=== PATIENT | female | born 2005 | race Caucasian/White ===

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

== ENCOUNTER 2023-01-12 14:07 | Emergency (ER) | payer OTHER ==
--- OUTSIDE RECORDS SUMMARY | 2023-01-12 14:10 | XMS REPORT | Continuity of Care Document ---
:2005 Author Organization [facility] t Address [address] [place] [address] Care Team Providers Name Role Phone [email or web address] Attending Clinician Unavailable Ruthie Snow Attending Clinician [phone] SAEID GODDARD Attending Clinician Unavailable Lab, Adc Fam Pob I Attending Clinician Unavailable Georgia Frey Attending Clinician GEORGIA CONWAY Attending Clinician Unavailable Elena Engle Attending Clinician ELENA JIMENEZ Attending Clinician Unavailable ZACK DASILVA Attending Clinician Unavailable Zack Dasilva MD Attending Clinician Gisel Mendez RN Attending Clinician Unavailable [email or web address] Admitting Clinician Unavailable Payers Payer Name Policy Type Policy Number Effective Date Expiration Date Alycia segura [facility] [id number] [facility] [id number] 2019 [facility] 00:00:00 (MEDICAID HMO) [facility] [id number] 2020 00:00:00 Problems Condition Condition Condition Status Onset Resolution Last Treating Co mments Source Name Details Category Date Date Treatment Clinician Date No known No known Disease Unive rs active active ity of problems problems [facility] Allergies, Adverse Reactions, Alerts Allergy Allergy Status Severity Reaction(s) Onset Inactive Treating Comm ents Source Name Type Date Date Clinician NO KNOWN Drug Active Univers ALLERGIE Class ity of S [facility] Social History Social Habit Start Date Stop Date Quantity Comments Source Exposure to SARS-CoV-2 [facility] [place] [facility] Sex Assigned At Uni versity [facility] Smoking Status Start Date Stop Date Source Never Smoker [facility] Unknown if ever smoked Universit y of [facility] Medications Ordered Filled Start Stop Current Ordering Indication Dosage Frequency Signature Comments Components Source Medication Medication Date Date Medication? Clinician (SIG) Name Name omeprazole 2020-0 Yes [id number] 40mg Take 1 U nivers 40 mg 8-14 capsule by ity of capsule 00:00: mouth [place] 00 daily. Medical Branch fluticasone 2020-0 Yes [id number] 2{spray Use 2 Univers propionate 8-14 } Sprays in ity of 50 00:00: each [place] mcg/actuati 00 nostril Medic al on nasal daily. Branch spray omeprazole 2020-0 Yes [id number] 40mg Take 1 U nivers 40 mg 8-14 capsule by ity of capsule 00:00: mouth [place] 00 daily. Medical Branch fluticasone 2020-0 Yes [id number] 2{spray Use 2 Univers propionate 8-14 } Sprays in ity of 50 00:00: each [place] mcg/actuati 00 nostril Medic al on nasal daily. Branch spray omeprazole 2020-0 Yes [id number] 40mg Take 1 U nivers 40 mg 8-14 capsule by ity of capsule 00:00: mouth [place] 00 daily. Medical Branch fluticasone 2020-0 Yes [id number] 2{spray Use 2 Univers propionate 8-14 } Sprays in ity of 50 00:00: each [place] mcg/actuati 00 nostril Medic al on nasal daily. Branch spray omeprazole 2020-0 Yes [id number] 40mg Take 1 U nivers 40 mg 8-14 capsule by ity of capsule 00:00: mouth [place] 00 daily. Medical Branch fluticasone 2020-0 Yes [id number] 2{spray Use 2 Univers propionate 8-14 } Sprays in ity of 50 00:00: each [place] mcg/actuati 00 nostril Medic al on nasal daily. Branch spray omeprazole 2020-0 Yes [id number] 40mg Take 1 U nivers 40 mg 8-14 capsule by ity of capsule 00:00: mouth [place] 00 daily. Medical Branch fluticasone 2020-0 Yes [id number] 2{spray Use 2 Univers propionate 8-14 } Sprays in ity of 50 00:00: each [place] mcg/actuati 00 nostril Medic al on nasal daily. Branch spray omeprazole 2020-0 Yes [id number] 40mg Take 1 U nivers 40 mg 8-14 capsule by ity of capsule 00:00: mouth [place] 00 daily. Medical Branch fluticasone 2020-0 Yes [id number] 2{spray Use 2 Univers propionate 8-14 } Sprays in ity of 50 00:00: each [place] mcg/actuati 00 nostril Medic al on nasal daily. Branch spray omeprazole 2020-0 Yes [id number] 40mg Take 1 U nivers 40 mg 8-14 capsule by ity of capsule 00:00: mouth [place] 00 daily. Medical Branch fluticasone 2020-0 Yes [id number] 2{spray Use 2 Univers propionate 8-14 } Sprays in ity of 50 00:00: each [place] mcg/actuati 00 nostril Medic al on nasal daily. Branch spray omeprazole 2020-0 Yes [id number] 40mg Take 1 U nivers 40 mg 8-14 capsule by ity of capsule 00:00: mouth [place] 00 daily. Medical Branch fluticasone 2020-0 Yes [id number] 2{spray Use 2 Univers propionate 8-14 } Sprays in ity of 50 00:00: each [place] mcg/actuati 00 nostril Medic al on nasal daily. Branch spray omeprazole 2020-0 Yes [id number] 40mg Take 1 U nivers 40 mg 8-14 capsule by ity of capsule 00:00: mouth [place] 00 daily. Medical Branch fluticasone 2020-0 Yes [id number] 2{spray Use 2 Univers propionate 8-14 } Sprays in ity of 50 00:00: each [place] mcg/actuati 00 nostril Medic al on nasal daily. Branch spray omeprazole 2020-0 Yes [id number] 40mg Take 1 U nivers 40 mg 8-14 capsule by ity of capsule 00:00: mouth [place] 00 daily. Medical Branch fluticasone 2020-0 Yes [id number] 2{spray Use 2 Univers propionate 8-14 } Sprays in ity of 50 00:00: each [place] mcg/actuati 00 nostril Medic al on nasal daily. Branch spray fluticasone 2020-0 2020- No [id number] 1{spray Use 1 Univers propionate 8-14 08-14 } [place] in ity of 50 00:00: 00:00 each [place] mcg/actuati 00 :00 nostril Medic al on nasal daily. Branch spray famotidine 2019-0 2020- No [id number] 40mg Take 1 Univers 40 mg 8-14 08-14 tablet by ity of tablet 00:00: 00:00 mouth at [place] 00 :00 bedtime. Medical Branch fluticasone 2020-0 2020- No [id number] 1{spray Use 1 Univers propionate 8-14 08-14 } [place] in ity of 50 00:00: 00:00 each [place] mcg/actuati 00 :00 nostril Medic al on nasal daily. Branch spray famotidine 2020-0 2020- No [id number] 40mg Take 1 Univers 40 mg 8-14 08-14 tablet by ity of tablet 00:00: 00:00 mouth at [place] 00 :00 bedtime. Medical Branch fluticasone 2020-0 2020- No [id number] 1{spray Use 1 Univers propionate 8-14 08-14 } [place] in ity of 50 00:00: 00:00 each [place] mcg/actuati 00 :00 nostril Medic al on nasal daily. Branch spray famotidine 2020-0 2020- No [id number] 40mg Take 1 Univers 40 mg 8-14 08-14 tablet by ity of tablet 00:00: 00:00 mouth at [place] 00 :00 bedtime. Medical Branch levonorgest 2020-0 Yes [facility] rel-ethinyl 8-03 ity of estradiol 00:00: [place] 0.1-20 00 Medical mg-mcg per Branch tablet levonorgest 2020-0 Yes [facility] rel-ethinyl 8-03 ity of estradiol 00:00: [place] 0.1-20 00 Medical mg-mcg per Branch tablet levonorgest 2020-0 Yes [facility] rel-ethinyl 8-03 ity of estradiol 00:00: [place] 0.1-20 00 Medical mg-mcg per Branch tablet levonorgest 2020-0 Yes Univer s rel-ethinyl 8-03 ity of estradiol 00:00: [place] 0.1-20 00 Medical mg-mcg per Branch tablet levonorgest 2020-0 Yes Univer s rel-ethinyl 8-03 ity of estradiol 00:00: [place] 0.1-20 00 Medical mg-mcg per Branch tablet levonorgest 2020-0 Yes Univer s rel-ethinyl 8-03 ity of estradiol 00:00: [place] 0.1-20 00 Medical mg-mcg per Branch tablet levonorgest 2020-0 Yes Univer s rel-ethinyl 8-03 ity of estradiol 00:00: [place] 0.1-20 00 Medical mg-mcg per Branch tablet levonorgest 2020-0 Yes [facility] rel-ethinyl 02-12 ity of estradiol 00:00: [place] 0.1-20 00 Medical mg-mcg per Branch tablet levonorgest 2020-0 Yes [facility] rel-ethinyl 02-12 ity of estradiol 00:00: [place] 0.1-20 00 Medical mg-mcg per Branch tablet levonorgest 2020-0 Yes [facility] rel-ethinyl 02-12 ity of estradiol 00:00: [place] 0.1-20 00 Medical mg-mcg per Branch tablet Aviane 0.1 Aviane 0.1 No Aviane 0.1 [facility] mg-20 mcg mg-20 mcg mg-20 mcg Medical tablet TAKE tablet TAKE tablet 1 TABLET BY 1 TABLET BY TAKE 1 MOUTH ONCE MOUTH ONCE TABLET BY DAILY DAILY MOUTH ONCE DIRECTED DIRECTED DAILY DIRECTED mometasone mometasone No mometasone [facility] 0.1 % 0.1 % 0.1 % Medical topical topical topical ointment ointment ointment Preparation Preparation No Preparatio [facility] H Maximum H Maximum n H Medic al Strength Strength Maximum 0.25 %-1 % 0.25 %-1 % Strength rectal rectal 0.25 %-1 % cream Apply cream Apply rectal Topically Topically cream to rectal to rectal Apply area up to area up to Topically 4 times per 4 times per to rectal day day area up to 4 times per day Aviane 0.1 Aviane 0.1 No Aviane 0.1 [facility] mg-20 mcg mg-20 mcg mg-20 mcg Medical tablet TAKE tablet TAKE tablet 1 TABLET BY 1 TABLET BY TAKE 1 MOUTH ONCE MOUTH ONCE TABLET BY DAILY DAILY MOUTH ONCE DIRECTED DIRECTED DAILY DIRECTED mometasone mometasone No mometasone [facility] 0.1 % 0.1 % 0.1 % Medical topical topical topical ointment ointment ointment Preparation Preparation No Preparatio [facility] H Maximum H Maximum n H Medic al Strength Strength Maximum 0.25 %-1 % 0.25 %-1 % Strength rectal rectal 0.25 %-1 % cream Apply cream Apply rectal Topically Topically cream to rectal to rectal Apply area up to area up to Topically 4 times per 4 times per to rectal day day area up to 4 times per day Vital Signs Vital Name Observation Time Observation Value Comments Source BP Diastolic 2022-09-30 00:00:00 75 mm[Hg] [facility] edical Height 2022-09-30 00:00:00 64 [in_i] Jose morton BMI (Body Mass 2022-09-30 00:00:00 21 kg/m2 [facility] Medical Index) BP Systolic 2022-09-30 00:00:00 124 mm[Hg] Jose [facility] Body Weight 2022-09-30 00:00:00 122.4 [lb_av] [facility] BP Diastolic 2021-09-12 00:00:00 75 mm[Hg] [facility] edical Height 2021-09-12 00:00:00 64 [in_i] Jose morton BMI (Body Mass 2021-09-12 00:00:00 21 kg/m2 [facility] Medical Index) BP Systolic 2021-09-12 00:00:00 113 mm[Hg] Jose morton Body Weight 2021-09-12 00:00:00 122.6 [facility] 2020-05-14 21:00:00 84 /min [facility] Respiratory rate 2020-05-14 21:00:00 16 /min [facility] Oxygen saturation in 2020-05-14 21:00:00 98 /min [facility] Arterial blood by [facility] Pulse oximetry Branch Body temperature 2020-04-06 18:19:00 37.22 Dayami [facility] Body height 2020-04-06 18:19:00 160 cm Universi [facility] Body weight 2020-04-06 18:19:00 53.615 kg Universi [facility] BMI 2020-04-06 18:19:00 20.94 kg/m2 [facility] Body temperature 2020-02-24 15:27:00 36.89 Dayami [facility] Body height 2020-02-24 15:27:00 160 cm Universi [facility] [place] [facility] Body weight 2020-02-24 15:27:00 [facility]205 [facility] 2020-02-24 15:27:00 21.17 kg/m2 [facility] Procedures This patient has no known procedures. Plan of Care Planned Activity Planned Date Details Comments Source Diagnostic Test 2022-09-30 Grapefruit IgE Ab [facility] Pending 00:00:00 [Units/volume] in Serum [code = 6131-7] Diagnostic Test 2022-09-30 HbA1c (hemoglobin [facility] Pending 00:00:00 A1c), blood [code = HbA1c (hemoglobin A1c), blood] Diagnostic Test 2022-09-30 lipid panel, serum [facility] Pending 00:00:00 [code = lipid panel, serum] Diagnostic Test 2022-09-30 vitamin D, 25-hydroxy, [facility] Pending 00:00:00 total, serum [code = vitamin D, 25-hydroxy, total, serum] Diagnostic Test 2022-09-30 TSH + free T4, serum [facility] Pending 00:00:00 [code = TSH + free T4, serum] Diagnostic Test 2022-09-30 Pyridoxine congeners [facility] Pending 00:00:00 [Mass/volume] in Serum or Plasma [code = 2901-7] Diagnostic Test 2022-09-30 unlisted lab [code = [facility] Pending 00:00:00 unlisted lab] Diagnostic Test 2022-09-30 Indirect antiglobulin Stephanie [facility] Pending 00:00:00 test.IgG specific reagent [Presence] in Serum or Plasma [code = 1005-8] Diagnostic Test 2022-09-30 unlisted lab [code = [facility] Pending 00:00:00 unlisted lab] Encounters Start End Encounter Admission Attending Care Care Encounter Source Date/Time Date/Time Type Type Clinicians Facility Department ID 2022-09-30 2022-09-30 Outpatient GC_LMG_Ly_E PRIV PRIV [id number] [facility] 00:00:00 00:00:00 [id number] Medica l 2022-09-30 2022-09-30 Bernice [facility] 00:[facility]:00 00:00:00 Valeriano [facility] - Medic abigail CNM: [id number] GC_LMG_Suga [facility], Office* [place] [address] , Ph. 2022-09-29 2022-09-29 Outpatient GC_LMG_Ly_E PRIV PRIV [id number] [facility] 00:00:00 00:00:00 [id number] Medica l 2021-10-19 2021-10-19 Outpatient GC_LMG_Ly_E PRIV PRIV [id number] [facility] 06:20:00 06:20:00 [id number] Medica l 2021-09-12 2021-09-12 Outpatient GC_LMG_Ly_E PRIV PRIV [id number] [facility] 04:53:00 04:53:00 [id number] Medica l 2021-09-12 2021-09-12 Outpatient Ly, Ruthie PRIV PRIV [id number] 00:00:00 00:00:00 [id number] 2021-09-12 2021-09-12 Ruthie Ly, [facility] 00:00:00 00:00:00 NP-BC: [facility] [place] [address] GC_LMG_Suga [facility], Office* [place] [address] , Ph. 2021-09-09 2021-09-09 Outpatient GC_LMG_Ly_E PRIV PRIV [id number] [facility] 02:56:00 02:56:00 [id number] Medica l 2021-09-09 2021-09-09 Outpatient GC_LMG_Ly_E PRIV PRIV [id number] [facility] 02:56:00 02:56:00 [id number] Medica l 2021-09-02 2021-09-02 Outpatient GC_LMG_Ly_E PRIV PRIV [id number] [facility] 11:29:00 11:29:00 [id number] Medica l 2020-11-10 2020-11-10 Outpatient [facility] [id number] Univers 14:30:00 14:30:00 [facility] 2020-10-20 2020-10-20 Outpatient [facility] [id number] Univers 13:05:00 13:05:00 [facility] 2020-08-29 2020-08-29 Outpatient R NITZA [facility] [id number] Univers 08:00:00 08:00:00 SAEID garcia [facility] 2020-08-15 2020-08-15 Laboratory Lab, [facility] [id number] Univers 14:14:02 14:34:02 Only [facility] [id number] ity of [place] [id number] Matt as Professio [phone] [facility] [address] Office [facility] 2020-08-15 2020-08-15 [facility] [id number] Univers 14:20:00 14:20:00 GEORGIA garcia [facility] 2020-05-14 2020-05-14 Laboratory Lab, [facility] [id number] Univers 16:22:14 16:42:14 Only Barbara Elena [facility] [id number] ity of [place] [id number] Matt as Professio [phone] [address] Office [facility] 2020-05-14 2020-05-14 [facility] [id number] Univers 16:20:00 16:20:00 ELENA garcia [facility] 2020-04-06 2020-04-06 [facility] [id number] Univers 13:45:00 13:45:00 ZACK garcia [facility] 2020-04-06 2020-04-06 Office RYAN Dasilva [id number] Univers 13:14:36 13:29:36 Visit Zack Dickson [id number] it y of [employer] [id number] Matt as BANK [phone] [facility] BLDG. [address] 2020-04-06 2020-04-06 Letter RYAN Dasilva [id number] Univers 00:00:00 00:00:00 (Out) Zack Dickson [id number] it y of [employer] [id number] Matt as BANK [phone] [facility]. [address] 2020-02-27 2020-02-27 Telephone [facility] [id number] Univers 00:00:00 00:00:00 Zack MULLINS [id number] i ty of [facility] [id number] [phone] [address] 2020-02-24 2020-02-24 [facility] [id number] Univers 10:18:53 11:49:28 Visit Zack Dickson [id number] it y of [facility] [id number] Matt as BANK [phone] [facility]. [address] 2020-02-24 2020-02-24 Outpatient [facility] [id number] Univers 10:15:00 10:15:00 ZACK roulafela of [facility] 2020-02-24 2020-02-24 Nurse Gisel Mendez [id number] Univers 00:00:00 00:00:00 Triage EDI [id number] it y of [facility] [id number] Matt as [phone] [address] Results This patient has no known results.
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
[2023-01-12 16:33] VITALS: TEMP 98.5
[2023-01-12 16:35] VITALS: BP 103/68; O2SAT 98
== END 2023-01-12 16:23 | disposition home or self-care (01) ==
LOC: ER 14:07
DX: H53.8 Other visual disturbances (principal); S60.811A Abrasion of right wrist, initial encounter; R07.89 Other chest pain; V49.40XA Driver injured in collision with unspecified motor vehicles in traffic accident, initial encounter; F41.9 Anxiety disorder, unspecified
CPT/HCPCS: 70450; 71046; 72125; 99284